=== PATIENT | female | born 1995 | race African-American/Black ===

== ENCOUNTER 2021-07-14 07:09 | Observation (INO) | payer OTHER ==
[2021-07-14] MEDS ORDERED: Ondansetron PF 4 MG/2 ML Vial ONE (07:54)
[2021-07-14] MEDS ORDERED: Acetaminophen 500 MG TAB ONE (07:55)
[2021-07-14 08:26] LABS: #Monocytes 0.8 10x3/uL (0.0-1.1); #Neutrophils 15.8 10x3/uL (1.5-8.4); %Basophils 0.1 % (0.0-2.0); %Lymphocytes 4.6 % (18.0-47.0); %Monocytes 4.5 % (0.0-10.0); %Neutrophils 90.4 % (40.0-75.0); Hemoglobin 14.8 g/dL (12.0-15.5); Mean Corpuscular HGB CONC 36.4 g/dL (32.0-36.0); Mean Corpuscular Hemoglobin 34.2 pg (27.0-33.0); Mean Platelet Volume 10.4 fl (7.4-10.4); Platelet Count 282 10x3/uL (150-450); RBC Distribution Width 12.7 % (11.5-14.5); Red Blood Cell (RBC) Count 4.33 10x6/uL (3.90-5.03); White Blood Cell (WBC) Count 17.4 10x3/uL (3.5-10.5)
[2021-07-14 08:39] LABS: ALT (SGPT) 15 U/L (8-55); AST (SGOT) 18 U/L (5-34); Albumin 4.6 g/dL (3.5-5.0); Alkaline Phosphatase 50 U/L (40-110); Anion Gap 19 mmol/L (10-20); BUN (Urea Nitrogen) 10 mg/dL (7.0-18.7); Bilirubin, Total 0.5 mg/dL (0.2-1.2); Calc. Creatinine Clearance 0 mL/min (70-130); Calcium 10.2 mg/dL (7.8-10.44); Carbon Dioxide 20 mmol/L (22-29); Chloride 99 mmol/L (98-107); Globulin 3.1 g/dL (2.4-3.5); Glucose 133 mg/dL (70-105); Lipase 14 U/L (8-78); Potassium 4.3 mmol/L (3.5-5.1); Protein, Total 7.7 g/dL (6.0-8.3); Sodium 134 mmol/L (136-145)
[2021-07-14 09:26] LABS: Bilirubin Neg (Negative); Blood, Urine 10 (Negative); Clarity Slightly Cloudy (Clear); Glucose, Urine (Dipstick) 50 mg/dL (Negative); Ketone, Urine 150 mg/dL (Negative); Leukocyte Negative (Negative); Nitrite Negative (Negative); Protein, Urine (Dipstick) 100 mg/dl (Neg-Trace); Specific Gravity, Urine 1.025 (1.002-1.036); Urobilinogen Normal mg/dL (Less than 2)
[2021-07-14] MEDS ORDERED: Promethazine HCl 25 MG/ML VIAL ONE ×2 (09:45→10:57)
[2021-07-14 10:02] LABS: Bacteria/HPF Rare-Few HPF (None Seen); WBC/HPF 0-3 HPF (0-3)
[2021-07-14] MEDS ORDERED: Promethazine HCl 25 MG/ML VIAL IM PRN (12:23)
[2021-07-14] MEDS ORDERED: Zolpidem Tartrate 5 MG TAB PO PRN (12:23)
[2021-07-14 13:04] LABS: SARS-CoV-2 NAA Rapid Test Not Detected (NotDetected)
[2021-07-14] MEDS: Multivitamins, Adult 10 ML, Folic Acid 1 MG in Dextrose 5 %-0.45 % NaCl 1,000 ML IV SCH (13:47)
[2021-07-14] MEDS: Metoclopramide HCl 10 MG/2 ML VIAL IVP SCH ×2 (14:26→22:41)
[2021-07-14 15:06] VITALS: BMI 21.9
[2021-07-14] MEDS: Lactated Ringer's 1,000 ML IV SCH ×2 (16:29→22:38)
[2021-07-14] MEDS: Acetaminophen 500 MG TAB PO PRN (22:39)
[2021-07-14] MEDS: Ondansetron PF 4 MG/2 ML Vial IVP PRN (22:39)
[2021-07-15] MEDS: Lactated Ringer's 1,000 ML IV SCH ×2 (02:50→04:42)
[2021-07-15] MEDS: Ondansetron PF 4 MG/2 ML Vial IVP PRN (04:40)
[2021-07-15] MEDS: Acetaminophen 500 MG TAB PO PRN (04:40)
[2021-07-15] MEDS: Metoclopramide HCl 10 MG/2 ML VIAL IVP SCH ×2 (06:16→12:49)
[2021-07-15] MEDS ORDERED: MAGNESIUM HYDROXIDE SSW SCH (09:00)
[2021-07-15] MEDS ORDERED: VISCOUS SSW SCH (09:00)
[2021-07-15] MEDS ORDERED: [UNRECOGNIZED DRUG - OTHER] SSW SCH (09:00)
[2021-07-15] MEDS ORDERED: LIDOCAINE 2% SSW SCH (09:00)
[2021-07-15] MEDS ORDERED: ALUMINUM SSW SCH (09:00)
[2021-07-15 12:10] VITALS: BP 106/59; TEMP 98.9
[2021-07-15] MEDS: Multivitamins, Adult 10 ML, Folic Acid 1 MG in Dextrose 5 %-0.45 % NaCl 1,000 ML IV SCH (12:42)
[2021-07-15] MEDS ORDERED: Thiamine HCl 200 MG/2 ML VIAL SLOW IVP SCH (13:00)
[2021-07-15 13:11] LABS: Hemoglobin A1c 5.3 % (4.0-6.0)
== END 2021-07-15 16:40 | disposition home or self-care (01) ==
LOC: CSHERS 07:09 → INTOOBSV 13:32 → CSHPP 13:32
PROVIDERS: ADMIT Obstetrics & Gynecology; ATTEND Obstetrics & Gynecology
DX: O21.9 Vomiting of pregnancy, unspecified (principal); O99.891 Other specified diseases and conditions complicating pregnancy; R19.7 Diarrhea, unspecified; O99.611 Diseases of the digestive system complicating pregnancy, first trimester; K21.9 Gastro-esophageal reflux disease without esophagitis; Z3A.13 13 weeks gestation of pregnancy; Z87.440 Personal history of urinary (tract) infections; Z20.822 Contact with and (suspected) exposure to COVID-19
CPT/HCPCS: 36415; 80053; 81003; 81015; 83036; 83690; 85025; 94760; 96365; 96366; 96367; 96374; 96375; 96376; G0378; J2405; J2550; J2765; J3411; J7042; J7120; Q0163

== ENCOUNTER 2021-09-08 11:32 | Emergency (ER) | payer OTHER ==
[2021-09-08] MEDS ORDERED: diphenhydrAMINE 50 MG/ML VIAL ONE (12:00)
[2021-09-08] MEDS ORDERED: Metoclopramide HCl 10 MG/2 ML VIAL ONE (12:00)
[2021-09-08 12:14] LABS: #Monocytes 0.9 10x3/uL (0.0-1.1); #Neutrophils 12.3 10x3/uL (1.5-8.4); %Basophils 0.1 % (0.0-2.0); %Eosinophils 0.1 % (0.0-6.0); %Lymphocytes 11.5 % (18.0-47.0); %Monocytes 6.1 % (0.0-10.0); %Neutrophils 81.9 % (40.0-75.0); Hemoglobin 14.9 g/dL (12.0-15.5); Mean Corpuscular HGB CONC 35.7 g/dL (32.0-36.0); Mean Corpuscular Hemoglobin 33.1 pg (27.0-33.0); Mean Corpuscular Volume 92.7 fl (81.6-98.3); Mean Platelet Volume 10.5 fl (7.4-10.4); Platelet Count 266 10x3/uL (150-450); RBC Distribution Width 12.4 % (11.5-14.5)
[2021-09-08 12:28] LABS: ALT (SGPT) 17 U/L (8-55); AST (SGOT) 23 U/L (5-34); Albumin 4.8 g/dL (3.5-5.0); Alkaline Phosphatase 60 U/L (40-110); Anion Gap 17 mmol/L (10-20); BUN (Urea Nitrogen) 8 mg/dL (7.0-18.7); Bilirubin, Total 0.5 mg/dL (0.2-1.2); Calc. Creatinine Clearance 0 mL/min (70-130); Calcium 10.5 mg/dL (7.8-10.44); Carbon Dioxide 26 mmol/L (22-29); Chloride 93 mmol/L (98-107); Globulin 3.6 g/dL (2.4-3.5); Glucose 112 mg/dL (70-105); Magnesium 1.9 mg/dL (1.6-2.6); Potassium 3.6 mmol/L (3.5-5.1); Protein, Total 8.4 g/dL (6.0-8.3); Sodium 132 mmol/L (136-145)
[2021-09-08 13:41] LABS: Bilirubin Neg (Negative); Blood, Urine Negative (Negative); Clarity Clear (Clear); Glucose, Urine (Dipstick) Normal (Negative); Ketone, Urine 15 mg/dL (Negative); Leukocyte Negative (Negative); Nitrite Negative (Negative); Protein, Urine (Dipstick) Negative (Neg-Trace); Urobilinogen Normal mg/dL (Less than 2)
== END 2021-09-08 14:45 | disposition home or self-care (01) ==
LOC: CSHERS 11:32
DX: O21.0 Mild hyperemesis gravidarum (principal); Z3A.13 13 weeks gestation of pregnancy
CPT/HCPCS: 80053; 81003; 83735; 85025; 96365; 96366; 96375; J1200; J2765

== ENCOUNTER 2021-10-12 07:11 | Observation (INO) | payer OTHER ==
[2021-10-12 07:52] VITALS: BMI 25.2
[2021-10-12] MEDS ORDERED: Ondansetron PF 4 MG/2 ML Vial ONE ×2 (08:07→09:37)
[2021-10-12] MEDS ORDERED: hydrALAZINE 20 MG/ML VIAL SLOW IVP PRN (08:49)
[2021-10-12] MEDS ORDERED: Ondansetron PF 4 MG/2 ML Vial IVP PRN (08:50)
[2021-10-12] MEDS ORDERED: Lactated Ringer's 1,000 ML IV SCH (09:00)
[2021-10-12] MEDS: Promethazine HCl 25 MG in Sodium Chloride 0.9% 50 ML IVPB PRN ×2 (09:14→16:16)
[2021-10-12] MEDS ORDERED: Ondansetron HCl/PF 8 MG in Sodium Chloride 0.9% 50 ML IVPB SCH (09:15)
[2021-10-12] MEDS ORDERED: Ondansetron HCl/PF 8 MG, Admixture Fee 1 EACH in Sodium Chloride 0.9% 50 ML IVPB SCH (09:30)
[2021-10-12] MEDS: Lactated Ringer's 1,000 ML IV SCH (09:37)
[2021-10-12] MEDS ORDERED: Ondansetron PF 4 MG/2 ML Vial IVP SCH (09:45)
[2021-10-12] MEDS ORDERED: Pantoprazole 40 MG VIAL IVP SCH (10:00)
[2021-10-12 10:46] LABS: Bilirubin Neg (Negative); Blood, Urine Negative (Negative); Clarity Clear (Clear); Glucose, Urine (Dipstick) 50 mg/dL (Negative); Ketone, Urine 150 mg/dL (Negative); Leukocyte Negative (Negative); Nitrite Negative (Negative); Protein, Urine (Dipstick) 30 mg/dl (Neg-Trace); Urobilinogen Normal mg/dL (Less than 2)
[2021-10-12 10:53] LABS: Urine Culture Reflex No No
[2021-10-12 10:55] LABS: Bacteria/HPF 1+ HPF (None Seen); RBC/HPF None Seen HPF (0-3); Squamous Epithelial 0-3 HPF (0-3); WBC/HPF 0-3 HPF (0-3)
[2021-10-12 11:25] LABS: ALT (SGPT) 12 U/L (8-55); AST (SGOT) 16 U/L (5-34); Albumin 3.6 g/dL (3.5-5.0); Alkaline Phosphatase 59 U/L (40-110); Anion Gap 13 mmol/L (10-20); BUN (Urea Nitrogen) 5 mg/dL (7.0-18.7); Bilirubin, Total 0.2 mg/dL (0.2-1.2); Calc. Creatinine Clearance 177 mL/min (70-130); Calcium 8.9 mg/dL (7.8-10.44); Carbon Dioxide 22 mmol/L (22-29); Chloride 104 mmol/L (98-107); Estimated GFR 129; Globulin 2.7 g/dL (2.4-3.5); Glucose 105 mg/dL (70-105); Protein, Total 6.3 g/dL (6.0-8.3); Sodium 135 mmol/L (136-145)
[2021-10-12 11:58] LABS: #Monocytes 0.3 10x3/uL (0.0-1.1); #Neutrophils 12.6 10x3/uL (1.5-8.4); %Basophils 0.1 % (0.0-2.0); %Monocytes 2.4 % (0.0-10.0); Hemoglobin 12.2 g/dL (12.0-15.5); Mean Corpuscular HGB CONC 34.7 g/dL (32.0-36.0); Mean Corpuscular Hemoglobin 34.1 pg (27.0-33.0); Mean Corpuscular Volume 98.3 fl (81.6-98.3); Mean Platelet Volume 11.7 fl (7.4-10.4); Platelet Count 151 10x3/uL (150-450); RBC Distribution Width 11.9 % (11.5-14.5); Red Blood Cell (RBC) Count 3.58 10x6/uL (3.90-5.03); White Blood Cell (WBC) Count 13.7 10x3/uL (3.5-10.5)
[2021-10-12] MEDS ORDERED: Acetaminophen 500 MG TAB PO PRN (12:51)
[2021-10-12] MEDS ORDERED: Metoclopramide HCl 10 MG/2 ML VIAL IVP PRN (17:50)
[2021-10-12] MEDS: Ondansetron PF 4 MG/2 ML Vial IVP PRN (20:30)
[2021-10-12] MEDS ORDERED: diphenhydrAMINE 50 MG/ML VIAL ONE (21:13)
[2021-10-12] MEDS ORDERED: diphenhydrAMINE 50 MG/ML VIAL IVP SCH (21:30)
[2021-10-12] MEDS ORDERED: Fluticasone Propionate Nasal Spray 16 gm Bottle NASAL SCH (21:45)
[2021-10-13] MEDS: Promethazine HCl 25 MG in Sodium Chloride 0.9% 50 ML IVPB PRN (02:36)
[2021-10-13 03:30] LABS: Mean Corpuscular Volume 97.2 fl (81.6-98.3)
[2021-10-13 03:31] LABS: #Neutrophils 14.1 10x3/uL (1.5-8.4); %Basophils 0.1 % (0.0-2.0); %Lymphocytes 7.2 % (18.0-47.0); %Monocytes 5.8 % (0.0-10.0); %Neutrophils 86.5 % (40.0-75.0); Hemoglobin 12.1 g/dL (12.0-15.5); Mean Corpuscular HGB CONC 35.1 g/dL (32.0-36.0); Mean Corpuscular Hemoglobin 33.4 pg (27.0-33.0); Mean Platelet Volume 11.3 fl (7.4-10.4); Platelet Count 175 10x3/uL (150-450); RBC Distribution Width 11.9 % (11.5-14.5); Red Blood Cell (RBC) Count 3.62 10x6/uL (3.90-5.03); White Blood Cell (WBC) Count 16.3 10x3/uL (3.5-10.5)
[2021-10-13 03:54] LABS: ALT (SGPT) 8 U/L (8-55); AST (SGOT) 16 U/L (5-34); Albumin 3.6 g/dL (3.5-5.0); Alkaline Phosphatase 57 U/L (40-110); Anion Gap 14 mmol/L (10-20); BUN (Urea Nitrogen) Less than 4 mg/dL (7.0-18.7); Bilirubin, Total 0.4 mg/dL (0.2-1.2); Calc. Creatinine Clearance 161 mL/min (70-130); Calcium 8.9 mg/dL (7.8-10.44); Carbon Dioxide 19 mmol/L (22-29); Chloride 105 mmol/L (98-107); Estimated GFR 126; Globulin 2.7 g/dL (2.4-3.5); Glucose 106 mg/dL (70-105); Potassium 3.3 mmol/L (3.5-5.1); Protein, Total 6.3 g/dL (6.0-8.3); Sodium 135 mmol/L (136-145)
[2021-10-13] MEDS ORDERED: Potassium Chloride 20 MEQ in Premix Bag 1 BAG IVPB SCH ×2 (06:45→07:00)
[2021-10-13] MEDS ORDERED: Fluticasone Propionate Nasal Spray 16 gm Bottle NASAL SCH (09:00)
[2021-10-13] MEDS ORDERED: Potassium Chloride 20 MEQ TAB PO SCH (09:30)
[2021-10-13] MEDS: Ondansetron PF 4 MG/2 ML Vial IVP PRN (10:36)
[2021-10-13] MEDS ORDERED: Acetaminophen 500 MG TAB PO PRN (17:57)
[2021-10-13] MEDS: Lactated Ringer's 1,000 ML IV SCH (18:21)
[2021-10-13] MEDS ORDERED: Acetaminophen 500 MG TAB PO SCH (18:30)
== END 2021-10-13 20:00 | disposition home health service (06) ==
LOC: CSHLD/OP 07:11 → CSHLD 12:51 → UNDOADMOB 10-13 02:34
PROVIDERS: ADMIT Obstetrics & Gynecology; ATTEND Obstetrics & Gynecology
DX: O21.2 Late vomiting of pregnancy (principal); O98.512 Other viral diseases complicating pregnancy, second trimester; U07.1 COVID-19; O99.283 Endocrine, nutritional and metabolic diseases complicating pregnancy, third trimester; E87.6 Hypokalemia; Z3A.26 26 weeks gestation of pregnancy
CPT/HCPCS: 36415; 80053; 81001; 85025; 87086; C9113; J1200; J2405; J2550; J2765; J3480; U0003; U0005

== ENCOUNTER 2021-12-26 10:50 | Inpatient (IN) | payer OTHER ==
[~2021-12-26 10:50] MED LIST: Bupivacaine PF 0.5% 30 ML VIAL ONE; Bupivacaine/Epinephrine 0.25% 30 ML VIAL ONE
[2021-12-26] MEDS ORDERED: Ibuprofen 800 MG TAB PO PRN (15:03)
[2021-12-26] MEDS ORDERED: Promethazine HCl 25 MG/ML VIAL IM PRN ×2 (15:03→20:40)
[2021-12-26] MEDS ORDERED: Ondansetron PF 4 MG/2 ML Vial IVP PRN ×2 (15:03→20:40)
[2021-12-26] MEDS ORDERED: hydrALAZINE 20 MG/ML VIAL SLOW IVP PRN (15:03)
[2021-12-26] MEDS ORDERED: Lidocaine 1% (PF) 30 ML VIAL SC PRN (15:03)
[2021-12-26] MEDS ORDERED: Acetaminophen 500 MG TAB PO PRN (15:03)
[2021-12-26] MEDS ORDERED: Lactated Ringer's 1,000 ML IV SCH (15:15)
[2021-12-26] MEDS ORDERED: NS w/ Oxytocin 30 units 500 ML IV SCH (15:15)
[2021-12-26 16:12] LABS: Hemoglobin 12.9 g/dL (12.0-15.5); Mean Corpuscular HGB CONC 34.3 g/dL (32.0-36.0); Mean Corpuscular Hemoglobin 33.2 pg (27.0-33.0); Mean Corpuscular Volume 96.9 fl (81.6-98.3); Mean Platelet Volume 12.9 fl (7.4-10.4); Platelet Count 132 10x3/uL (150-450); RBC Distribution Width 12.6 % (11.5-14.5); Red Blood Cell (RBC) Count 3.88 10x6/uL (3.90-5.03); White Blood Cell (WBC) Count 11.6 10x3/uL (3.5-10.5)
[2021-12-26 16:35] LABS: Syphilis Antibody Nonreactive (Nonreactive); Syphilis Antibody Index 0.03 S/CO (<1.00 Non-Reactive)
[2021-12-26 16:36] LABS: HBSAg Index 0.24 S/CO (0-0.99); Hep B Surf Ag Non-Reactive S/CO (NonReactive)
[2021-12-26] MEDS ORDERED: Fentanyl 2 mcg/Bup 0.1% Cadd 100 ML ONE (19:43)
[2021-12-26] MEDS ORDERED: Moisturizing Cream (Eucerin) 113 GM JAR TOP PRN (20:40)
[2021-12-26] MEDS ORDERED: Lactated Ringer's 500 ML IV PRN (20:40)
[2021-12-26] MEDS ORDERED: Naloxone HCl 0.4 mg/ml Vial IVP PRN ×2 (20:40)
[2021-12-26] MEDS ORDERED: ePHEDrine Sulfate 50 MG/10 ML VIAL SLOW IVP PRN (20:40)
[2021-12-26] MEDS ORDERED: Acetaminophen 325 MG TAB PO PRN (20:40)
[2021-12-26] MEDS ORDERED: Communication Order-Pharmacy FS SCH (20:45)
[2021-12-26] MEDS ORDERED: Fentanyl 2 mcg/Bupivacaine 0.1% Cassette 100 ML EPIDURAL SCH (20:45)
[2021-12-27] MEDS: diphenhydrAMINE 50 MG/ML VIAL IVP PRN ×4 (01:46→12:35)
[2021-12-27] MEDS ORDERED: Fentanyl 2 mcg/Bup 0.1% Cadd 100 ML ONE (12:22)
[2021-12-27] MEDS ORDERED: Benzocaine-Menthol 82.5 ML CAN TOP PRN (13:48)
[2021-12-27] MEDS ORDERED: hydrALAZINE 20 MG/ML VIAL SLOW IVP PRN (13:48)
[2021-12-27] MEDS ORDERED: Lanolin Ointment 7 GM TUBE TOP PRN (13:48)
[2021-12-27] MEDS ORDERED: Measles/Mumps/Rubella 10 MCG/0.5 ML VIAL SC ONE (13:48)
[2021-12-27] MEDS ORDERED: Promethazine HCl 25 MG/ML VIAL IM PRN (13:48)
[2021-12-27] MEDS ORDERED: diphenhydrAMINE 25 MG CAP PO PRN (13:48)
[2021-12-27] MEDS ORDERED: Milk Of Magnesia 30 ML UDCUP PO PRN (13:48)
[2021-12-27] MEDS ORDERED: Boostrix 0.5 ML (Tdap) VIAL (>/=7 yrs of age) IM ONE (13:48)
[2021-12-27] MEDS ORDERED: Preparation H Ointment 28 GM TUBE PR PRN (13:48)
[2021-12-27] MEDS ORDERED: Misoprostol 200 MCG TAB VAG PRN (13:48)
[2021-12-27] MEDS ORDERED: Bisacodyl 10 MG SUPP PR PRN (13:48)
[2021-12-27] MEDS ORDERED: Methylergonovine 0.2 MG/ML VIAL IM PRN (13:48)
[2021-12-27] MEDS ORDERED: Varicella virus, LIVE 0.5 ML VIAL SC ONE (13:48)
[2021-12-27] MEDS ORDERED: Ondansetron PF 4 MG/2 ML Vial IVP PRN (13:48)
[2021-12-27] MEDS ORDERED: NS w/ Oxytocin 30 units 500 ML IV SCH (14:00)
[2021-12-27 19:36] VITALS: BMI 26.3
[2021-12-27] MEDS ORDERED: Fentanyl 100 MCG/2 ML VIAL ONE (20:08)
[2021-12-27] MEDS ORDERED: Zolpidem Tartrate 5 MG TAB PO PRN (21:00)
[2021-12-27] MEDS ORDERED: HYDROcodone/Acetaminophen 5/325 mg Tablet PO PRN (21:00)
[2021-12-28] MEDS: Docusate 100 MG CAP PO SCH ×3 (00:29→21:32)
[2021-12-28] MEDS: Ferrous Sulfate 325 MG TAB PO SCH ×3 (00:29→19:48)
[2021-12-28] MEDS: Ibuprofen 800 MG TAB PO SCH ×5 (00:29→21:32)
[2021-12-28 06:06] LABS: Hemoglobin 11.8 g/dL (12.0-15.5); Mean Corpuscular HGB CONC 34.9 g/dL (32.0-36.0); Mean Corpuscular Hemoglobin 33.6 pg (27.0-33.0); Mean Corpuscular Volume 96.3 fl (81.6-98.3); Mean Platelet Volume 12.1 fl (7.4-10.4); Platelet Count 111 10x3/uL (150-450); RBC Distribution Width 12.3 % (11.5-14.5); Red Blood Cell (RBC) Count 3.51 10x6/uL (3.90-5.03); White Blood Cell (WBC) Count 11.1 10x3/uL (3.5-10.5)
[2021-12-28] MEDS: Prenatal Vitamin 1 TAB PO SCH (08:12)
[2021-12-29] MEDS: Ibuprofen 800 MG TAB PO SCH (05:35)
[2021-12-29] MEDS: Ferrous Sulfate 325 MG TAB PO SCH (09:07)
[2021-12-29] MEDS: Docusate 100 MG CAP PO SCH (09:07)
[2021-12-29] MEDS: Prenatal Vitamin 1 TAB PO SCH (09:07)
[2021-12-29 10:42] VITALS: BP 110/69; TEMP 98.3
== END 2021-12-29 13:30 | disposition home or self-care (01) | DRG 807 ==
LOC: CSHLD/OP 10:50 → CSHLD 16:32 → CSHPP 12-28
PROVIDERS: ADMIT Obstetrics & Gynecology; ATTEND Obstetrics & Gynecology
PROC: 10E0XZZ Delivery of Products of Conception, External Approach (ICD-10-PCS; principal; 2021-12-28)
PROC: 10907ZC Drainage of Amniotic Fluid, Therapeutic from Products of Conception, Via Natural or Artificial Opening (ICD-10-PCS; 2021-12-28)
PROC: 10H07YZ Insertion of Other Device into Products of Conception, Via Natural or Artificial Opening (ICD-10-PCS; 2021-12-28)
DX: O80 Encounter for full-term uncomplicated delivery (principal); Z37.0 Single live birth; Z3A.37 37 weeks gestation of pregnancy; Z90.49 Acquired absence of other specified parts of digestive tract
CPT/HCPCS: 36415; 51702; 85027; 86780; 86850; 86900; 86901; 87340; 99285; J1200; J2310; J2405; J2590; J3010; S0020

== ENCOUNTER 2023-05-21 01:11 | Emergency (ER) | payer MEDICAID, OTHER, SELFPAY ==
[2023-05-21] MEDS ORDERED: Metoclopramide HCl 10 MG (2 mL) VIAL ONE (01:48)
[2023-05-21 02:51] LABS: #Monocytes 0.9 10x3/uL (0.0-1.1); #Neutrophils 11.4 10x3/uL (1.5-8.4); %Basophils 0.1 % (0.0-2.0); %Eosinophils 0.1 % (0.0-6.0); %Lymphocytes 8.6 % (18.0-47.0); %Monocytes 6.5 % (0.0-10.0); %Neutrophils 84.4 % (40.0-75.0); Hematocrit 37.9 % (34.9-44.5); Hemoglobin 13.2 g/dL (12.0-15.5); Mean Corpuscular HGB CONC 34.8 g/dL (32.0-36.0); Mean Corpuscular Hemoglobin 32.4 pg (27.0-33.0); Mean Corpuscular Volume 92.9 fl (81.6-98.3); Mean Platelet Volume 10.9 fl (7.4-10.4); Platelet Count 297 10x3/uL (150-450); Red Blood Cell (RBC) Count 4.08 10x6/uL (3.90-5.03); White Blood Cell (WBC) Count 13.6 10x3/uL (3.5-10.5)
[2023-05-21 03:04] LABS: ALT (SGPT) 12 U/L (8-55); AST (SGOT) 17 U/L (5-34); Albumin 4.5 g/dL (3.5-5.0); Alkaline Phosphatase 65 U/L (40-110); Anion Gap 17 mmol/L (10-20); BUN (Urea Nitrogen) 10 mg/dL (7.0-18.7); Bilirubin, Total 0.6 mg/dL (0.2-1.2); Calc. Creatinine Clearance 0 mL/min (70-130); Calcium 9.2 mg/dL (7.8-10.44); Carbon Dioxide 20 mmol/L (22-29); Chloride 102 mmol/L (98-107); Estimated GFR 123; Globulin 2.5 g/dL (2.4-3.5); Glucose 120 mg/dL (70-105); Potassium 3.6 mmol/L (3.5-5.1); Sodium 135 mmol/L (136-145)
== END 2023-05-21 03:35 | disposition home or self-care (01) ==
LOC: CSHERS 01:11
DX: O21.9 Vomiting of pregnancy, unspecified (principal); Z3A.12 12 weeks gestation of pregnancy
CPT/HCPCS: 80053; 85025; 96361; 96374; J2765

== ENCOUNTER 2023-09-16 07:20 | Day surgery (SDC) | payer MEDICAID ==
[2023-09-16 07:44] VITALS: BMI 23.7
[2023-09-16] MEDS ORDERED: hydrALAZINE 20 MG/ML VIAL SLOW IVP PRN (07:53)
[2023-09-16] MEDS: Ondansetron PF 4 MG/2 ML Vial IVP PRN (08:01)
[2023-09-16] MEDS: Lactated Ringer's 1,000 ML IV SCH (08:01)
[2023-09-16] MEDS: Dextrose 5%-Lactated Ringers 1,000 ML IV SCH (08:02)
[2023-09-16] MEDS ORDERED: Promethazine HCl 25 MG in Sodium Chloride 0.9% 50 ML IVPB PRN (08:21)
[2023-09-16 08:33] LABS: Bilirubin Neg (Negative); Blood, Urine Negative (Negative); Glucose, Urine (Dipstick) Normal (Negative); Ketone, Urine 150 mg/dL (Negative); Leukocyte Negative (Negative); Nitrite Negative (Negative); Protein, Urine (Dipstick) 30 mg/dl (Neg-Trace); Urobilinogen Normal mg/dL (Less than 2)
[2023-09-16 08:41] LABS: Clarity Hazy (Clear)
[2023-09-16 08:44] LABS: CAUTI Indications for Culture Pregnancy; RBC/HPF None Seen HPF (0-3); WBC/HPF None Seen HPF (0-3)
[2023-09-16 08:45] LABS: Bacteria/HPF Rare-Few HPF (None Seen); Mucous/LPF 1+ LPF (<2+)
[2023-09-16 08:46] LABS: Urine Culture Reflex Yes Yes
[2023-09-16] MEDS: Promethazine HCl 25 MG, Admixture Fee 1 EACH in Sodium Chloride 0.9% 50 ML IVPB PRN (09:07)
[2023-09-16] MEDS: Hyoscyamine SL 0.125 MG TAB PO PRN (10:35)
[2023-09-16] MEDS ORDERED: Lactated Ringer's 1,000 ML IV SCH (11:30)
[2023-09-16 12:01] LABS: #Basophils 0.02 10x3/uL (0.0-0.2); #Monocytes 0.37 10x3/uL (0.0-1.1); #Neutrophils 12.87 10x3/uL (1.5-8.4); %Basophils 0.1 % (0.0-2.0); %Lymphocytes 5.7 % (18.0-47.0); %Monocytes 2.6 % (0.0-10.0); %Neutrophils 91.1 % (40.0-75.0); Hematocrit 33.8 % (34.9-44.5); Mean Corpuscular HGB CONC 35.5 g/dL (32.0-36.0); Mean Corpuscular Hemoglobin 34.9 pg (27.0-33.0); Mean Corpuscular Volume 98.3 fL (81.6-98.3); Platelet Count 158 10x3/uL (150-450); RBC Distribution Width 12.1 % (11.5-14.5); Red Blood Cell (RBC) Count 3.44 10x6/uL (3.90-5.03); White Blood Cell (WBC) Count 14.1 10x3/uL (3.5-10.5)
[2023-09-16] MEDS: diphenhydrAMINE 25 MG in Sodium Chloride 0.9% 50 ML IVPB SCH (12:04)
[2023-09-16] MEDS: Metoclopramide HCl 10 MG (2 mL) VIAL IVP SCH (12:13)
[2023-09-16 12:18] LABS: ALT (SGPT) 10 U/L (8-55); AST (SGOT) 16 U/L (5-34); Albumin 3.2 g/dL (3.5-5.0); Alkaline Phosphatase 89 U/L (40-110); Anion Gap 14 mmol/L (10-20); BUN (Urea Nitrogen) 8 mg/dL (7.0-18.7); Bilirubin, Total 0.3 mg/dL (0.2-1.2); Calc. Creatinine Clearance 155 mL/min (70-130); Calcium 9.1 mg/dL (7.8-10.44); Carbon Dioxide 20 mmol/L (22-29); Chloride 105 mmol/L (98-107); Estimated GFR 126; Globulin 3.1 g/dL (2.4-3.5); Glucose 116 mg/dL (70-105); Potassium 3.7 mmol/L (3.5-5.1); Protein, Total 6.3 g/dL (6.0-8.3); Sodium 135 mmol/L (136-145)
== END 2023-09-16 13:02 | disposition home or self-care (01) ==
LOC: CSHLD/OP 07:20
PROVIDERS: ATTEND Obstetrics & Gynecology
DX: O99.891 Other specified diseases and conditions complicating pregnancy (principal); R10.9 Unspecified abdominal pain; O21.2 Late vomiting of pregnancy; Z3A.29 29 weeks gestation of pregnancy; Z79.899 Other long term (current) drug therapy
CPT/HCPCS: 80053; 81001; 85025; 87086; 96360; 99282; J1200; J2405; J2550; J2765